=== PATIENT | female | born 1985 | race Caucasian/White ===

== ENCOUNTER 2018-07-25 02:14 | Emergency (ER) | payer OTHER ==
[~2018-07-25] VITALS: Ht 175.3 cm; Wt 99.8 kg
[~2018-07-25 02:14] MED LIST: CIPRO 500MG TA500 MG PO
[2018-07-25 02:30] VITALS: BP 108/66
--- NOTE | 2018-07-25 04:42 | ED EAR COMPLAINT ---
History of Present Illness General Chief Complaint: Ear Complaints Stated Complaint: "I THINK MY EAR DRUM BLEW, I HEARD A POP" C/O PAIN Source: patient Exam Limitations: no limitations Vital Signs & Intake/Output Vital Signs & Intake/Output Vital Signs Date Time Temp Pulse Resp B/P B/P Pulse O2 O2 Flow FiO2 Mean Ox Delivery Rate 07/25 0230 99.0 96 20 108/66 98 Room Air Allergies Coded Allergies: NO KNOWN ALLERGIES (09/01/15) Reconcile Medications Amoxicillin/Potassium Clav (Augmentin 875-125 Tablet) 875 MG-125 MG TABLET 1 TAB PO BID EAR DRUM RUPTURE Triage Note: PT HERE WITH C/O RIGHT EAR PAIN AND DRAINAGE. PER PT SHE WAS IN BED AND FELT EAR PAIN, PUT VICKS ON COTTON BALL AND WENT TO BED. PT REPORTS A SUDDEN PAIN AND THEN A GUSH OF FLUID AND BLOOD DRAINED FROM RIGHT EAR. PT REPORTS PAIN WAS UNBELIEVABLE. PT STATES THAT SHE FELT RELIEF AFTERWARDS AND NOW BOTH EARS FEEL CLOGGED. PT REPORTS BEING ON AN ABX SINCE THURSDAY FOR STREP THROAT. Triage Nurses Notes Reviewed? yes : No Patient currently breastfeeds: No HPI: Patient presents for evaluation of a possible ruptured tympanic membrane. Patient states that she began having right ear pain at about 12:30 this morning. She put in a cotton ball with some thick tox and expected to follow-up at walk- in clinic later today. She states about 145 this morning however she felt a sudden expansion in the ear followed by a "pop". She then experienced some fluid and blood coming out of the ear. The pain resolved at that point. Past History Travel History Traveled to [place] past 21 day No Medical History Any Pertinent Medical History? see below for history Neurological: NONE EENT: NONE Cardiovascular: NONE Respiratory: NONE Gastrointestinal: NONE Hepatic: NONE Renal: NONE Musculoskeletal: NONE Psychiatric: NONE Endocrine: NONE Blood Disorders: NONE Cancer(s): NONE INSURANCE AGENTS SUPERVISOR/Reproductive: NONE Surgical History Surgical History: N Psychosocial History What is your primary language Maltese Tobacco Use: Never used ETOH Use: denies use Illicit Drug Use: denies illicit drug use Family History Hx Contributory? No Review of Systems Review of Systems Constitutional: Reports: no symptoms. EENTM: Reports: see HPI. Respiratory: Reports: no symptoms. Cardiovascular: Reports: no symptoms. GI: Reports: no symptoms. Genitourinary: Reports: no symptoms. Musculoskeletal: Reports: no symptoms. Skin: Reports: no symptoms. Neurological/Psychological: Reports: no symptoms. Hematologic/Endocrine: Reports: no symptoms. Immunologic/Allergic: Reports: no symptoms. All Other Systems: Reviewed and Negative Physical Exam Physical Exam Ears: Right: evidence of perforation. Comments: Gen.: Well-nourished, well-developed, no acute respiratory distress. Head: Normocephalic, atraumatic. Eyes: Normal inspection bilaterally Ears: Normal inspection bilaterally Nose: Normal inspection Throat/mouth : Moist mucosa Neck: Supple, full range of motion, no goiter Lungs: Quiet respirations Back: Normal range of motion Extremities: Normal range of motion grossly, no cyanosis clubbing or edema of the upper extremities Neurologic: Cranial nerves grossly intact, speech is clear Skin: warm and dry Psychiatric: Calm, cooperative, no apparent delusions or hallucinations Progress Differential Diagnoses I considered the following diagnoses in my evaluation of the patient: External otitis, otitis media, tympanic membrane rupture, foreign body Plan of Care: ent f/u Initial ED EKG: none Departure Departure Disposition: HOME OR SELF CARE Condition: Stable Clinical Impression Primary Impression: Eardrum rupture, right Referrals: Patient Has No Primary Care Dr (PCP/Family) Additional Instructions: Augmentin as prescribed. [id number] pain medication as necessary. Prevent anything from going into your right ear. Contact your ear nose and throat doctor today and arrange for follow-up appointment as soon as possible. Return if any concerns or sudden worsening. Departure Forms: Customer Survey General Discharge Information Prescriptions: Current Visit Scripts Amoxicillin/Potassium Clav (Augmentin 875-125 Tablet) 1 TAB PO BID #14 TAB
[2018-07-25] MEDS ORDERED: AUGMENTIN 875-1 EACH PO (04:46)
== END 2018-07-25 04:53 ==
LOC: ERH 02:14
DX: H72.91 Unspecified perforation of tympanic membrane, right ear (principal)